=== PATIENT | female | born 1950 | race Caucasian/White ===

== ENCOUNTER 2021-04-26 15:39 | Inpatient (IN) ==
[2021-04-26] MEDS ORDERED: NS 0.9% 1000 ml BAG 1,000 ML IV ONE ×2 (19:50→23:45)
[2021-04-26] MEDS ORDERED: Ondansetron 4 mg VIAL 2 MG/ML 2 ml VIAL IV ONE ×2 (20:04→23:45)
[2021-04-26 20:17] LABS: ABS Basophils 0.1 10^3/ul (0-0.2); ABS Lymphocytes 2.8 10^3/ul (1.0-4.8); ABS Monocytes 1.4 10^3/ul (0-0.8); ABS Neutrophils 10.3 10^3/ul (1.5-7.7); Eosinophil % 0.2 %; Hematocrit 34 % (35-47); Hemoglobin 11.2 g/dL (12.0-16.0); Lymphocyte % 18.9 %; Mean Corpuscular HGB Conc 33 g/dL (31-36); Mean Corpuscular Hemoglobin 27 pg (27-31); Mean Corpuscular Volume 83 fL (80-97); Mean Platelet Volume 8.9 fL (7.4-10.4); Nucleated Red Blood Cells % 0.2; Platelet Count 360 10^3/uL (150-450); Red Blood Count 4.12 10^6 /uL (3.70-4.87); Red Cell Distribution Width 15 % (10-15); White Blood Count 14.6 10^3/uL (3.5-10.8)
[2021-04-26 20:54] LABS: Albumin 3.9 g/dL (3.2-5.2); Albumin/Globulin Ratio 1.2 (1-3); C Reactive Protein 314.42 mg/L (<8.01); Calcium 8.5 mg/dL (8.6-10.3); Globulin 3.2 g/dL (2-4); Potassium 4.2 mmol/L (3.5-5.0); Total Bilirubin 0.6 mg/dL (0.2-1.0); Total Protein 7.1 g/dL (6.4-8.9); eGFR CKD-EPI 69.7 (>60)
[2021-04-26 21:52] LABS: Urine Appearance Cloudy; Urine Bilirubin Negative (Negative); Urine Blood 1+ (Negative); Urine Color Yellow; Urine Glucose Negative (Negative); Urine Ketones 2+ (Negative); Urine Nitrite Negative (Negative); Urine Protein 1+(30 mg/dL) (Negative); Urine Urobilinogen Negative (Negative)
[2021-04-26 21:54] LABS: Urine Bacteria Absent (Absent); Urine Red Blood Cell 3+(>10/hpf) (Absent); Urine Squamous Epithelial Cell Present (Absent); Urine White Blood Cell 1+(6-10/hpf) (Absent)
[2021-04-26 22:30] LABS: Rapid COVID-19 Molecular Undetected (Undetected)
[2021-04-27] MEDS ORDERED: Iodixanol (CONTRAST) 320 MG/ML 100 ML SDV IV ONE (00:13)
[2021-04-27] MEDS ORDERED: Piperacillin/Tazobac ADVAN 3.375 GM in NS 0.9% 100 ml BAG 100 ML IV ONE (03:08)
[2021-04-27] MEDS ORDERED: Zosyn per Pharmacy NOTE FOLLOW UP SCH (04:00)
[2021-04-27] MEDS ORDERED: Albuterol HFA INHALER 8 gm MDI INH PRN (05:34)
[2021-04-27] MEDS: Ondansetron 4 mg VIAL 2 MG/ML 2 ml VIAL IV PRN ×2 (06:12→23:20)
[2021-04-27] MEDS: Lactated Ringers 1000 ml BAG 1,000 ML IV SCH ×2 (06:21→15:18)
[2021-04-27] MEDS: Mometasone 220 MCG MDI INH SCH ×2 (07:20→21:19)
[2021-04-27] MEDS: Pantoprazole VIAL 40 MG VIAL IV SCH (08:46)
[2021-04-27] MEDS: ZOSYN 3.375 GM Q8H per EXTENDED INFUSION IV SCH ×3 (08:46→23:47)
[2021-04-27 09:12] LABS: ABS Eosinophils 0.1 10^3/ul (0-0.6); ABS Lymphocytes 1.4 10^3/ul (1.0-4.8); ABS Neutrophils 8.1 10^3/ul (1.5-7.7); Eosinophil % 0.5 %; Hematocrit 31 % (35-47); Hemoglobin 10.4 g/dL (12.0-16.0); Lymphocyte % 13.7 %; Mean Corpuscular HGB Conc 33 g/dL (31-36); Mean Corpuscular Hemoglobin 28 pg (27-31); Mean Corpuscular Volume 84 fL (80-97); Mean Platelet Volume 9.1 fL (7.4-10.4); Platelet Count 291 10^3/uL (150-450); Red Blood Count 3.71 10^6 /uL (3.70-4.87); Red Cell Distribution Width 15 % (10-15); White Blood Count 10.6 10^3/uL (3.5-10.8)
[2021-04-27 09:42] LABS: Albumin 3.3 g/dL (3.2-5.2); Albumin/Globulin Ratio 1.2 (1-3); C Reactive Protein 241.06 mg/L (<8.01); Calcium 7.3 mg/dL (8.6-10.3); Direct Bilirubin 0.1 mg/dL (0.03-0.18); Globulin 2.7 g/dL (2-4); Indirect Bilirubin 0.4 mg/dL (0.3-1.0); Potassium 3.9 mmol/L (3.5-5.0); Total Bilirubin 0.5 mg/dL (0.2-1.0); eGFR CKD-EPI 91.4 (>60)
[2021-04-27] MEDS ORDERED: fentaNYL 100 mcg/2 ml 50 MCG/ML VIAL ONE (12:00)
[2021-04-27] MEDS ORDERED: Midazolam 10 mg/10 ml VIAL 1 mg/ml 10 ml VIAL (10 mg) ONE (12:00)
[2021-04-27 14:55] LABS: Carcinoembryonic Antigen 0.9 ng/mL (0.1-5.0)
[2021-04-27] MEDS: Acetaminop/Codeine 300mg/30mg TAB PO PRN (16:47)
[2021-04-28] MEDS: Lactated Ringers 1000 ml BAG 1,000 ML IV SCH ×2 (03:24→22:54)
[2021-04-28] MEDS: Acetaminop/Codeine 300mg/30mg TAB PO PRN ×3 (03:26→19:46)
[2021-04-28 05:47] LABS: ABS Eosinophils 0.1 10^3/ul (0-0.6); ABS Lymphocytes 1.4 10^3/ul (1.0-4.8); ABS Neutrophils 7.2 10^3/ul (1.5-7.7); Eosinophil % 0.6 %; Hematocrit 28 % (35-47); Hemoglobin 9.2 g/dL (12.0-16.0); Lymphocyte % 14.8 %; Mean Corpuscular HGB Conc 33 g/dL (31-36); Mean Corpuscular Hemoglobin 28 pg (27-31); Mean Corpuscular Volume 84 fL (80-97); Mean Platelet Volume 8.4 fL (7.4-10.4); Platelet Count 276 10^3/uL (150-450); Red Blood Count 3.34 10^6 /uL (3.70-4.87); Red Cell Distribution Width 15 % (10-15); White Blood Count 9.8 10^3/uL (3.5-10.8)
[2021-04-28 06:06] LABS: Calcium 6.8 mg/dL (8.6-10.3); Potassium 3.9 mmol/L (3.5-5.0); eGFR CKD-EPI 89.9 (>60)
[2021-04-28] MEDS: Mometasone 220 MCG MDI INH SCH ×2 (08:06→19:36)
[2021-04-28] MEDS: Ondansetron 4 mg VIAL 2 MG/ML 2 ml VIAL IV PRN (08:41)
[2021-04-28] MEDS: ZOSYN 3.375 GM Q8H per EXTENDED INFUSION IV SCH ×3 (08:46→22:49)
[2021-04-28] MEDS: Pantoprazole VIAL 40 MG VIAL IV SCH (08:46)
[2021-04-29] MEDS: Acetaminop/Codeine 300mg/30mg TAB PO PRN ×2 (03:36→13:57)
[2021-04-29] MEDS: Pantoprazole VIAL 40 MG VIAL IV SCH (07:42)
[2021-04-29] MEDS: ZOSYN 3.375 GM Q8H per EXTENDED INFUSION IV SCH ×3 (07:42→22:09)
[2021-04-29] MEDS: Mometasone 220 MCG MDI INH SCH ×2 (07:44→20:11)
[2021-04-29 08:47] LABS: ABS Basophils 0.1 10^3/ul (0-0.2); ABS Eosinophils 0.1 10^3/ul (0-0.6); ABS Lymphocytes 1.7 10^3/ul (1.0-4.8); ABS Neutrophils 8.6 10^3/ul (1.5-7.7); Hematocrit 29 % (35-47); Hemoglobin 9.4 g/dL (12.0-16.0); Lymphocyte % 14.5 %; Mean Corpuscular HGB Conc 32 g/dL (31-36); Mean Corpuscular Hemoglobin 27 pg (27-31); Mean Corpuscular Volume 84 fL (80-97); Mean Platelet Volume 8.2 fL (7.4-10.4); Platelet Count 290 10^3/uL (150-450); Red Blood Count 3.47 10^6 /uL (3.70-4.87); Red Cell Distribution Width 15 % (10-15); White Blood Count 11.5 10^3/uL (3.5-10.8)
[2021-04-29] MEDS: Lactated Ringers 1000 ml BAG 1,000 ML IV SCH ×3 (09:09→22:09)
[2021-04-29 09:13] LABS: Potassium 3.6 mmol/L (3.5-5.0); eGFR CKD-EPI 93.6 (>60)
[2021-04-29] MEDS ORDERED: Gadoteridol (CONTRAST) 279.3 MG/ML 10 ML IV ONE (12:18)
[2021-04-29] MEDS ORDERED: Saline NASAL SPRAY 0.65% BTL BOTH NARES PRN (16:20)
[2021-04-29] MEDS: Enoxaparin 40 MG/0.4 ML SYR SUBCUT SCH (16:56)
[2021-04-29] MEDS: Ondansetron 4 mg VIAL 2 MG/ML 2 ml VIAL IV PRN (17:59)
[2021-04-29] MEDS: Acetaminop/Codeine 300mg/30mg TAB PO SCH (21:04)
[2021-04-30] MEDS: Acetaminop/Codeine 300mg/30mg TAB PO SCH ×3 (05:12→21:17)
[2021-04-30 06:02] LABS: ABS Basophils 0.1 10^3/ul (0-0.2); ABS Eosinophils 0.1 10^3/ul (0-0.6); ABS Lymphocytes 1.9 10^3/ul (1.0-4.8); ABS Monocytes 1.1 10^3/ul (0-0.8); ABS Neutrophils 9.5 10^3/ul (1.5-7.7); Hematocrit 30 % (35-47); Hemoglobin 9.9 g/dL (12.0-16.0); Lymphocyte % 15.3 %; Mean Corpuscular HGB Conc 33 g/dL (31-36); Mean Corpuscular Hemoglobin 28 pg (27-31); Mean Corpuscular Volume 84 fL (80-97); Mean Platelet Volume 8.4 fL (7.4-10.4); Platelet Count 295 10^3/uL (150-450); Red Blood Count 3.57 10^6 /uL (3.70-4.87); Red Cell Distribution Width 15 % (10-15); White Blood Count 12.7 10^3/uL (3.5-10.8)
[2021-04-30 06:23] LABS: C Reactive Protein 307.24 mg/L (<8.01); Potassium 3.7 mmol/L (3.5-5.0); eGFR CKD-EPI 95.4 (>60)
[2021-04-30] MEDS: ZOSYN 3.375 GM Q8H per EXTENDED INFUSION IV SCH ×3 (07:38→22:06)
[2021-04-30] MEDS: Mometasone 220 MCG MDI INH SCH ×2 (07:49→20:37)
[2021-04-30] MEDS: Lactated Ringers 1000 ml BAG 1,000 ML IV SCH ×2 (09:51→19:26)
[2021-04-30] MEDS: Enoxaparin 40 MG/0.4 ML SYR SUBCUT SCH (17:51)
[2021-05-01] MEDS: Acetaminop/Codeine 300mg/30mg TAB PO SCH ×3 (05:49→23:30)
[2021-05-01] MEDS: Lactated Ringers 1000 ml BAG 1,000 ML IV SCH ×2 (05:50→23:29)
[2021-05-01] MEDS: Ondansetron 4 mg VIAL 2 MG/ML 2 ml VIAL IV PRN ×2 (05:53→23:06)
[2021-05-01 06:03] LABS: ABS Basophils 0.1 10^3/ul (0-0.2); ABS Eosinophils 0.2 10^3/ul (0-0.6); ABS Lymphocytes 1.4 10^3/ul (1.0-4.8); ABS Monocytes 0.9 10^3/ul (0-0.8); Eosinophil % 2.3 %; Hematocrit 25 % (35-47); Hemoglobin 8.4 g/dL (12.0-16.0); Lymphocyte % 14.4 %; Mean Corpuscular HGB Conc 33 g/dL (31-36); Mean Corpuscular Hemoglobin 28 pg (27-31); Mean Corpuscular Volume 84 fL (80-97); Mean Platelet Volume 8.3 fL (7.4-10.4); Nucleated Red Blood Cells % 0.1; Platelet Count 265 10^3/uL (150-450); Red Blood Count 3.03 10^6 /uL (3.70-4.87); Red Cell Distribution Width 15 % (10-15); White Blood Count 9.6 10^3/uL (3.5-10.8)
[2021-05-01 06:34] LABS: Blood Urea Nitrogen 3 mg/dL (6-24); CO2 Carbon Dioxide 32 mmol/L (22-32); Calcium 6.5 mg/dL (8.6-10.3); Chloride 100 mmol/L (101-111); Glucose 95 mg/dL (70-100); Sodium 139 mmol/L (135-145); eGFR CKD-EPI 99.4 (>60)
[2021-05-01 06:37] LABS: Anion Gap 7 mmol/L (2-11)
[2021-05-01] MEDS: ZOSYN 3.375 GM Q8H per EXTENDED INFUSION IV SCH ×3 (07:04→23:03)
[2021-05-01] MEDS: Mometasone 220 MCG MDI INH SCH ×2 (07:50→19:02)
[2021-05-01] MEDS: Enoxaparin 40 MG/0.4 ML SYR SUBCUT SCH (17:20)
[2021-05-02] MEDS: Acetaminop/Codeine 300mg/30mg TAB PO SCH ×3 (05:39→21:06)
[2021-05-02 06:08] LABS: ABS Basophils 0.1 10^3/ul (0-0.2); ABS Eosinophils 0.2 10^3/ul (0-0.6); ABS Lymphocytes 1.4 10^3/ul (1.0-4.8); ABS Monocytes 0.8 10^3/ul (0-0.8); ABS Neutrophils 5.3 10^3/ul (1.5-7.7); Hematocrit 25 % (35-47); Hemoglobin 8.2 g/dL (12.0-16.0); Lymphocyte % 17.6 %; Mean Corpuscular HGB Conc 33 g/dL (31-36); Mean Corpuscular Hemoglobin 27 pg (27-31); Mean Corpuscular Volume 83 fL (80-97); Mean Platelet Volume 8.1 fL (7.4-10.4); Nucleated Red Blood Cells % 0.2; Platelet Count 263 10^3/uL (150-450); Red Blood Count 3.03 10^6 /uL (3.70-4.87); Red Cell Distribution Width 15 % (10-15); White Blood Count 7.7 10^3/uL (3.5-10.8)
[2021-05-02] MEDS: ZOSYN 3.375 GM Q8H per EXTENDED INFUSION IV SCH (08:24)
[2021-05-02] MEDS: Mometasone 220 MCG MDI INH SCH ×2 (08:28→19:35)
[2021-05-02] MEDS: cefTRIAXone 1 gm/50 mL D5W 1 GM/50 ML BAG IV SCH (12:06)
[2021-05-02] MEDS: Enoxaparin 40 MG/0.4 ML SYR SUBCUT SCH (15:45)
[2021-05-03] MEDS: Acetaminop/Codeine 300mg/30mg TAB PO SCH ×2 (05:25→13:34)
[2021-05-03] MEDS: Mometasone 220 MCG MDI INH SCH ×2 (07:26→19:55)
[2021-05-03] MEDS: cefTRIAXone 1 gm/50 mL D5W 1 GM/50 ML BAG IV SCH (11:49)
[2021-05-03 15:36] VITALS: BP 133/68
[2021-05-03] MEDS: Enoxaparin 40 MG/0.4 ML SYR SUBCUT SCH (16:23)
== END 2021-05-03 18:45 | disposition home or self-care (01) | DRG 371 ==
LOC: ED 15:39 → SUATTDRO 04-27 03:02 → EDHOLD 04-27 03:02 → MED 04-27 05:37
PROVIDERS: ADMIT Internal Medicine; ATTEND Hospitalist

== ENCOUNTER 2021-06-12 16:49 | Inpatient (IN) ==
[2021-06-12] MEDS ORDERED: Albuterol HFA INHALER 8 gm MDI INH PRN (17:34)
[2021-06-12] MEDS ORDERED: Acetaminop/Codeine 300mg/30mg TAB PO PRN (17:34)
[2021-06-12] MEDS ORDERED: Morphine 4 MG/ML VIAL (1 ml) IV PRN (18:17)
[2021-06-12 18:23] LABS: Hematocrit 28 % (35-47); Mean Corpuscular HGB Conc 32 g/dL (31-36); Mean Corpuscular Hemoglobin 25 pg (27-31); Mean Corpuscular Volume 80 fL (80-97); Red Blood Count 3.54 10^6 /uL (3.70-4.87); Red Cell Distribution Width 17 % (10-15); White Blood Count 14.5 10^3/uL (3.5-10.8)
[2021-06-12 18:25] LABS: Albumin 3.2 g/dL (3.2-5.2); C Reactive Protein 307.99 mg/L (<8.01); Calcium 7.5 mg/dL (8.6-10.3); Globulin 3.2 g/dL (2-4); Magnesium 1.7 mg/dL (1.9-2.7); Total Bilirubin 0.8 mg/dL (0.2-1.0); Total Protein 6.4 g/dL (6.4-8.9); eGFR CKD-EPI 89.3 (>60)
[2021-06-12] MEDS: NS 0.9% 1000 ml BAG 1,000 ML IV SCH (18:41)
[2021-06-12] MEDS ORDERED: CMCS: Meloxicam 7.5 mg TAB (NF) PO PRN (18:51)
[2021-06-12] MEDS ORDERED: Dextrose 50% Syringe 50 ml 25 GM/50 ML SYRINGE IV PUSH PRN (19:04)
[2021-06-12 19:06] LABS: ABS Basophils 0.1 10^3/ul (0-0.2); ABS Eosinophils 0.1 10^3/ul (0-0.6); ABS Lymphocytes 2.4 10^3/ul (1.0-4.8); ABS Monocytes 1.5 10^3/ul (0-0.8); ABS Neutrophils 10.5 10^3/ul (1.5-7.7); Eosinophil % 0.5 %; Lymphocyte % 16.6 %; Mean Platelet Volume 9.2 fL (7.4-10.4); Platelet Count 315 10^3/uL (150-450)
[2021-06-12 19:27] LABS: Urine Appearance Clear; Urine Bilirubin Negative (Negative); Urine Blood Negative (Negative); Urine Color Yellow; Urine Glucose Negative (Negative); Urine Ketones Negative (Negative); Urine Nitrite Negative (Negative); Urine Protein Negative (Negative); Urine Specific Gravity 1.044 (1.002-1.030); Urine Urobilinogen Negative (Negative)
[2021-06-12] MEDS: Mometasone 220 MCG MDI INH SCH (19:55)
[2021-06-12 20:07] LABS: Urine Bacteria Absent (Absent); Urine Red Blood Cell Absent (Absent); Urine Squamous Epithelial Cell Present (Absent); Urine White Blood Cell Trace(0-5/hpf) (Absent)
[2021-06-12] MEDS: Calcium/Vitamin D TAB 250/125 TAB PO SCH (20:36)
[2021-06-12] MEDS: Cefepime 2 GM in Dextrose 2 GM/50 ML BAG IV SCH (20:36)
[2021-06-12] MEDS ORDERED: NASONEX 50 MCG BOTH NARES SCH (21:00)
[2021-06-12] MEDS ORDERED: Heparin 5000 UNITS/ML 1 mL VIAL SUBCUT SCH (22:00)
[2021-06-13] MEDS: Morphine 2 MG/ML SYRINGE IV PRN ×5 (00:38→21:43)
[2021-06-13] MEDS: Ondansetron 4 mg VIAL 2 MG/ML 2 ml VIAL IV PRN ×4 (00:45→13:42)
[2021-06-13 07:06] LABS: ABS Basophils 0.1 10^3/ul (0-0.2); ABS Lymphocytes 1.5 10^3/ul (1.0-4.8); ABS Monocytes 1.4 10^3/ul (0-0.8); ABS Neutrophils 10.8 10^3/ul (1.5-7.7); Eosinophil % 0.3 %; Hematocrit 26 % (35-47); Hemoglobin 8.3 g/dL (12.0-16.0); Lymphocyte % 10.7 %; Mean Corpuscular HGB Conc 32 g/dL (31-36); Mean Corpuscular Hemoglobin 26 pg (27-31); Mean Corpuscular Volume 79 fL (80-97); Platelet Count 277 10^3/uL (150-450); Red Blood Count 3.24 10^6 /uL (3.70-4.87); Red Cell Distribution Width 17 % (10-15); White Blood Count 13.7 10^3/uL (3.5-10.8)
[2021-06-13 07:20] LABS: Anion Gap 9 mmol/L (2-11); Blood Urea Nitrogen 11 mg/dL (6-24); CO2 Carbon Dioxide 26 mmol/L (22-32); Chloride 102 mmol/L (101-111); Glucose 113 mg/dL (70-100); Magnesium 1.8 mg/dL (1.9-2.7); Potassium 4.4 mmol/L (3.5-5.0); Sodium 137 mmol/L (135-145); eGFR CKD-EPI 95.5 (>60)
[2021-06-13] MEDS ORDERED: Magnesium Sulfate 2 gm BAG 2 GM/50 ML BAG IVPB ONE (07:38)
[2021-06-13] MEDS ORDERED: CALCIUM GLUCONATE 1GM/50ML NS 1 GM/50 ML BAG IV ONE (09:00)
[2021-06-13] MEDS: Cefepime 2 GM in Dextrose 2 GM/50 ML BAG IV SCH ×2 (09:46→21:54)
[2021-06-13] MEDS: Calcium/Vitamin D TAB 250/125 TAB PO SCH ×2 (09:58→21:48)
[2021-06-13] MEDS: Potassium Chlor 10 meq TAB PO SCH (09:59)
[2021-06-13] MEDS: Mometasone 220 MCG MDI INH SCH ×2 (10:05→21:46)
[2021-06-13] MEDS: Fluticasone NASAL SPRAY 50MCG 16 gm SPRAY BTL INTRANASAL SCH ×2 (10:43→21:50)
[2021-06-13] MEDS: Multivitamins/Minerals TAB PO SCH (10:43)
[2021-06-13 16:00] LABS: Total Iron Binding Capacity 210 mcg/dL (250-450); Transferrin 150 mg/dL (203-362)
[2021-06-13] MEDS: metroNIDAZOLE IV 500 MG/100ML 500 MG/100 ML BAG IVPB SCH ×2 (16:10→23:09)
[2021-06-13 16:40] LABS: Ferritin 138.8 ng/mL (11-307)
[2021-06-13 16:50] LABS: % Iron Saturation 10 % (15-55); Iron < 20 ug/dL (50-212); Unsaturated Iron Binding 190 ug/dL
[2021-06-13] MEDS ORDERED: Lidocaine 2% PF 5 ML VIAL ONE (16:59)
[2021-06-13] MEDS ORDERED: Propofol 10 MG/ML 20 ML BTL ONE (16:59)
[2021-06-13] MEDS ORDERED: fentaNYL 100 mcg/2 ml 50 MCG/ML VIAL ONE ×2 (17:03→18:39)
[2021-06-13] MEDS ORDERED: Midazolam 2 mg/2 ml VIAL 1 mg/ml 2 ml VIAL (2 mg) ONE (17:33)
[2021-06-13] MEDS ORDERED: Ondansetron 4 mg VIAL 2 MG/ML 2 ml VIAL ONE (17:34)
[2021-06-13] MEDS ORDERED: Sodium Chloride 0.9% 10 ML ONE (17:48)
[2021-06-13] MEDS ORDERED: Phenylephrine IV 10 MG/ML 1 ml VIAL ONE (17:48)
[2021-06-13] MEDS ORDERED: fentaNYL 100 mcg/2 ml 50 MCG/ML VIAL IV PRN (18:29)
[2021-06-13] MEDS ORDERED: Ondansetron 4 mg VIAL 2 MG/ML 2 ml VIAL IV PRN (18:29)
[2021-06-13] MEDS ORDERED: Naloxone 0.4 mg VIAL 0.4 mg/ml 1 ml VIAL IV PRN (18:29)
[2021-06-13] MEDS ORDERED: Acetaminophen IV 1 GM/100ML 100 ML IV PRN (18:29)
[2021-06-13] MEDS ORDERED: HYDROmorphone 1 MG/1 ML SYRINGE IV PRN (18:29)
[2021-06-13] MEDS ORDERED: DiMENhydriNATE IV 50 mg/ml 1 ml VIAL IV PUSH PRN (18:29)
[2021-06-13] MEDS ORDERED: Acetaminophen IV 1 GM/100ML 100 ML IV ONE (18:56)
[2021-06-13] MEDS ORDERED: DiMENhydriNATE IV 50 mg/ml 1 ml VIAL ONE (19:06)
[2021-06-13] MEDS: NS 0.9% 1000 ml BAG 1,000 ML IV SCH (21:38)
[2021-06-14] MEDS: metroNIDAZOLE IV 500 MG/100ML 500 MG/100 ML BAG IVPB SCH ×2 (05:22→14:51)
[2021-06-14] MEDS: Morphine 2 MG/ML SYRINGE IV PRN ×3 (05:28→17:08)
[2021-06-14 06:40] LABS: ABS Eosinophils 0.1 10^3/ul (0-0.6); ABS Lymphocytes 1.5 10^3/ul (1.0-4.8); ABS Monocytes 1.2 10^3/ul (0-0.8); ABS Neutrophils 8.5 10^3/ul (1.5-7.7); Eosinophil % 0.9 %; Hematocrit 26 % (35-47); Hemoglobin 8.3 g/dL (12.0-16.0); Lymphocyte % 12.9 %; Mean Corpuscular HGB Conc 32 g/dL (31-36); Mean Corpuscular Hemoglobin 26 pg (27-31); Mean Corpuscular Volume 81 fL (80-97); Mean Platelet Volume 8.9 fL (7.4-10.4); Platelet Count 252 10^3/uL (150-450); Red Blood Count 3.17 10^6 /uL (3.70-4.87); Red Cell Distribution Width 17 % (10-15); White Blood Count 11.3 10^3/uL (3.5-10.8)
[2021-06-14 06:54] LABS: Calcium 7.3 mg/dL (8.6-10.3); Potassium 4.2 mmol/L (3.5-5.0); eGFR CKD-EPI 94.4 (>60)
[2021-06-14] MEDS: Mometasone 220 MCG MDI INH SCH ×2 (08:09→19:56)
[2021-06-14] MEDS: Cefepime 2 GM in Dextrose 2 GM/50 ML BAG IV SCH (08:16)
[2021-06-14] MEDS: Multivitamins/Minerals TAB PO SCH (09:18)
[2021-06-14] MEDS: Calcium/Vitamin D TAB 250/125 TAB PO SCH (09:18)
[2021-06-14] MEDS: Potassium Chlor 10 meq TAB PO SCH (09:18)
[2021-06-14] MEDS: Fluticasone NASAL SPRAY 50MCG 16 gm SPRAY BTL INTRANASAL SCH (09:21)
[2021-06-14] MEDS ORDERED: Enoxaparin 40 MG/0.4 ML SYR SUBCUT SCH (10:00)
[2021-06-14 12:22] LABS: Rapid COVID-19 Molecular Undetected (Undetected)
[2021-06-14] MEDS: Ondansetron 4 mg VIAL 2 MG/ML 2 ml VIAL IV PRN (17:11)
[2021-06-14 19:57] VITALS: BP 108/66
== END 2021-06-14 20:30 | disposition short-term general hospital (02) | DRG 987 ==
LOC: SUATTDRO 17:17 → SSU 17:17
PROVIDERS: ADMIT Internal Medicine; ATTEND Internal Medicine

== ENCOUNTER 2021-08-30 11:23 | Inpatient (IN) ==
[2021-08-30 12:14] LABS: ABS Basophils 0.1 10^3/ul (0-0.2); ABS Eosinophils 0.1 10^3/ul (0-0.6); ABS Lymphocytes 1.4 10^3/ul (1.0-4.8); ABS Monocytes 0.5 10^3/ul (0-0.8); ABS Neutrophils 5.6 10^3/ul (1.5-7.7); Eosinophil % 0.7 %; Hematocrit 29 % (35-47); Lymphocyte % 18.6 %; Mean Corpuscular HGB Conc 31 g/dL (31-36); Mean Corpuscular Hemoglobin 24 pg (27-31); Mean Corpuscular Volume 79 fL (80-97); Mean Platelet Volume 9.8 fL (7.4-10.4); Nucleated Red Blood Cells % 0.1; Platelet Count 215 10^3/uL (150-450); Red Blood Count 3.68 10^6 /uL (3.70-4.87); Red Cell Distribution Width 21 % (10-15); White Blood Count 7.7 10^3/uL (3.5-10.8)
[2021-08-30 12:54] LABS: Albumin 3.8 g/dL (3.2-5.2); Albumin/Globulin Ratio 1.6 (1-3); Calcium 8.5 mg/dL (8.6-10.3); Globulin 2.4 g/dL (2-4); Potassium 4.5 mmol/L (3.5-5.0); Total Bilirubin 0.7 mg/dL (0.2-1.0); Total Protein 6.2 g/dL (6.4-8.9); eGFR CKD-EPI 67.4 (>60)
[2021-08-30] MEDS ORDERED: Furosemide 40 mg/4 ml IV VIAL IV ONE (13:22)
[2021-08-30 13:39] LABS: Magnesium 1.9 mg/dL (1.9-2.7)
[2021-08-30 14:05] LABS: High Sensitivity Troponin 1 Hr 17 pg/mL (<15)
[2021-08-30] MEDS ORDERED: Albuterol HFA INHALER 8 gm MDI INH PRN (15:41)
[2021-08-30] MEDS ORDERED: Mometasone NASAL (NF) SPRAY BOTH NARES PRN (15:41)
[2021-08-30 16:55] LABS: C Reactive Protein 8.86 mg/L (<8.01)
[2021-08-30] MEDS ORDERED: Dextrose 50% Syringe 50 ml 25 GM/50 ML SYRINGE IV PUSH PRN (17:44)
[2021-08-30] MEDS: Enoxaparin 30 MG/0.3 ML SYR SUBCUT SCH (17:55)
[2021-08-30] MEDS: Potassium Chlor 20 meq TAB.ER PO SCH (20:19)
[2021-08-30] MEDS ORDERED: Furosemide 20 mg/2 ml IV VIAL IV SLOW PU ONE (21:00)
[2021-08-30] MEDS: Polyethylene Glycol 3350 17 GM PACKET PO SCH (23:37)
[2021-08-31] MEDS ORDERED: Furosemide 40 mg/4 ml IV VIAL IV SLOW PU ONE (05:31)
[2021-08-31 06:05] LABS: ABS Basophils 0.1 10^3/ul (0-0.2); ABS Eosinophils 0.2 10^3/ul (0-0.6); ABS Lymphocytes 2.8 10^3/ul (1.0-4.8); ABS Monocytes 0.6 10^3/ul (0-0.8); ABS Neutrophils 5.6 10^3/ul (1.5-7.7); Hematocrit 31 % (35-47); Hemoglobin 9.8 g/dL (12.0-16.0); Lymphocyte % 30.3 %; Mean Corpuscular HGB Conc 31 g/dL (31-36); Mean Corpuscular Hemoglobin 24 pg (27-31); Mean Corpuscular Volume 77 fL (80-97); Mean Platelet Volume 9.3 fL (7.4-10.4); Nucleated Red Blood Cells % 0.1; Platelet Count 245 10^3/uL (150-450); Red Blood Count 4.07 10^6 /uL (3.70-4.87); Red Cell Distribution Width 20 % (10-15); White Blood Count 9.3 10^3/uL (3.5-10.8)
[2021-08-31 06:43] LABS: Calcium 8.4 mg/dL (8.6-10.3); HDL Cholesterol 37.3 mg/dL; Magnesium 1.8 mg/dL (1.9-2.7); eGFR CKD-EPI 52.6 (>60)
[2021-08-31 06:58] LABS: TSH Ultra Thyroid Stim Horm 0.62 mcIU/mL (0.34-5.60)
[2021-08-31 07:04] LABS: Ferritin 28.3 ng/mL (11-307)
[2021-08-31] MEDS: Mometasone 220 MCG MDI INH SCH ×2 (07:56→20:02)
[2021-08-31] MEDS ORDERED: CALCIUM CARBONATE VITAMIN D3 PO SCH (09:00)
[2021-08-31] MEDS ORDERED: Furosemide 40 mg/4 ml IV VIAL IV SCH (09:00)
[2021-08-31] MEDS ORDERED: Iron Sucrose 20 MG/ML 5 ML VIAL IV PUSH SCH (09:00)
[2021-08-31] MEDS: Polyethylene Glycol 3350 17 GM PACKET PO SCH ×2 (09:14→20:14)
[2021-08-31] MEDS: Aspirin EC 81 mg TAB.EC (enteric coated) PO SCH (09:21)
[2021-08-31] MEDS: Potassium Chlor 20 meq TAB.ER PO SCH (09:22)
[2021-08-31] MEDS: Iron Sucrose 200 MG in NS 0.9% 100 ml IVPB SCH (09:24)
[2021-08-31] MEDS: Enoxaparin 30 MG/0.3 ML SYR SUBCUT SCH (17:42)
[2021-08-31] MEDS ORDERED: Nitroglycerin 0.4 mg/hr PATCH (10 mg) TRANSDERM SCH (20:00)
[2021-08-31] MEDS: Furosemide 40 mg/4 ml IV VIAL IV SCH (20:14)
[2021-09-01 07:29] LABS: ABS Basophils 0.1 10^3/ul (0-0.2); ABS Eosinophils 0.2 10^3/ul (0-0.6); ABS Lymphocytes 3.6 10^3/ul (1.0-4.8); ABS Monocytes 0.8 10^3/ul (0-0.8); ABS Neutrophils 5.4 10^3/ul (1.5-7.7); Eosinophil % 2.1 %; Hematocrit 32 % (35-47); Hemoglobin 10.4 g/dL (12.0-16.0); Lymphocyte % 35.1 %; Mean Corpuscular HGB Conc 32 g/dL (31-36); Mean Corpuscular Hemoglobin 25 pg (27-31); Mean Corpuscular Volume 76 fL (80-97); Mean Platelet Volume 9.8 fL (7.4-10.4); Nucleated Red Blood Cells % 0.1; Platelet Count 256 10^3/uL (150-450); Red Blood Count 4.23 10^6 /uL (3.70-4.87); Red Cell Distribution Width 20 % (10-15); White Blood Count 10.1 10^3/uL (3.5-10.8)
[2021-09-01] MEDS: Mometasone 220 MCG MDI INH SCH ×2 (07:30→20:42)
[2021-09-01 07:57] LABS: Calcium 8.2 mg/dL (8.6-10.3); Magnesium 2.1 mg/dL (1.9-2.7); Potassium 3.9 mmol/L (3.5-5.0); eGFR CKD-EPI 50.4 (>60)
[2021-09-01] MEDS: Calcium/Vitamin D TAB 250/125 TAB PO SCH (10:36)
[2021-09-01] MEDS: Potassium Chlor 20 meq TAB.ER PO SCH (10:37)
[2021-09-01] MEDS: Aspirin EC 81 mg TAB.EC (enteric coated) PO SCH (10:37)
[2021-09-01] MEDS: Polyethylene Glycol 3350 17 GM PACKET PO SCH ×2 (10:37→21:29)
[2021-09-01] MEDS: Iron Sucrose 200 MG in NS 0.9% 100 ml IVPB SCH (10:38)
[2021-09-01] MEDS: Furosemide 40 mg/4 ml IV VIAL IV SCH (10:38)
[2021-09-01] MEDS: Enoxaparin 30 MG/0.3 ML SYR SUBCUT SCH (21:16)
[2021-09-01] MEDS: Nitroglycerin 0.4 mg/hr PATCH (10 mg) TRANSDERM SCH (21:27)
[2021-09-02 05:40] LABS: ABS Basophils 0.1 10^3/ul (0-0.2); ABS Eosinophils 0.2 10^3/ul (0-0.6); ABS Lymphocytes 2.7 10^3/ul (1.0-4.8); ABS Monocytes 0.7 10^3/ul (0-0.8); ABS Neutrophils 4.4 10^3/ul (1.5-7.7); Eosinophil % 2.6 %; Hematocrit 31 % (35-47); Hemoglobin 9.8 g/dL (12.0-16.0); Mean Corpuscular HGB Conc 32 g/dL (31-36); Mean Corpuscular Hemoglobin 25 pg (27-31); Mean Corpuscular Volume 77 fL (80-97); Mean Platelet Volume 9.5 fL (7.4-10.4); Nucleated Red Blood Cells % 0.1; Platelet Count 226 10^3/uL (150-450); Red Blood Count 3.99 10^6 /uL (3.70-4.87); Red Cell Distribution Width 20 % (10-15)
[2021-09-02 05:59] LABS: Magnesium 2.4 mg/dL (1.9-2.7); Potassium 3.8 mmol/L (3.5-5.0); eGFR CKD-EPI 46.1 (>60)
[2021-09-02] MEDS: Mometasone 220 MCG MDI INH SCH ×2 (07:23→20:00)
[2021-09-02] MEDS: Potassium Chlor 20 meq TAB.ER PO SCH (08:25)
[2021-09-02] MEDS: Aspirin EC 81 mg TAB.EC (enteric coated) PO SCH (08:26)
[2021-09-02] MEDS: Calcium/Vitamin D TAB 250/125 TAB PO SCH (08:27)
[2021-09-02] MEDS: Polyethylene Glycol 3350 17 GM PACKET PO SCH ×2 (08:31→20:58)
[2021-09-02] MEDS: Iron Sucrose 200 MG in NS 0.9% 100 ml IVPB SCH (08:56)
[2021-09-02] MEDS ORDERED: NS 0.9% 500 ml BAG 500 ML IV ONE (09:50)
[2021-09-02] MEDS ORDERED: Silver Sulfadiazine 1% 20 gm TUBE TOPICAL ONE (14:12)
[2021-09-02] MEDS ORDERED: PEG 3000 GI LAVAGE 1 GALLON PO ONE (16:00)
[2021-09-02] MEDS: Enoxaparin 30 MG/0.3 ML SYR SUBCUT SCH (16:42)
[2021-09-02] MEDS: Nitroglycerin 0.4 mg/hr PATCH (10 mg) TRANSDERM SCH (21:02)
[2021-09-03 05:43] LABS: ABS Basophils 0.1 10^3/ul (0-0.2); ABS Eosinophils 0.1 10^3/ul (0-0.6); ABS Lymphocytes 3.8 10^3/ul (1.0-4.8); ABS Monocytes 0.8 10^3/ul (0-0.8); ABS Neutrophils 5.4 10^3/ul (1.5-7.7); Eosinophil % 1.2 %; Hematocrit 31 % (35-47); Hemoglobin 9.7 g/dL (12.0-16.0); Lymphocyte % 37.2 %; Mean Corpuscular HGB Conc 31 g/dL (31-36); Mean Corpuscular Hemoglobin 24 pg (27-31); Mean Corpuscular Volume 78 fL (80-97); Mean Platelet Volume 9.5 fL (7.4-10.4); Nucleated Red Blood Cells % 0.1; Platelet Count 251 10^3/uL (150-450); Red Blood Count 4.03 10^6 /uL (3.70-4.87); Red Cell Distribution Width 21 % (10-15); White Blood Count 10.3 10^3/uL (3.5-10.8)
[2021-09-03] MEDS ORDERED: Levothyroxine 100 MCG/5 ML VIAL IV ONE (06:00)
[2021-09-03 06:06] LABS: Calcium 7.9 mg/dL (8.6-10.3); Magnesium 2.3 mg/dL (1.9-2.7); Potassium 3.8 mmol/L (3.5-5.0); eGFR CKD-EPI 56.8 (>60)
[2021-09-03] MEDS: Mometasone 220 MCG MDI INH SCH ×3 (08:21→19:57)
[2021-09-03] MEDS: Polyethylene Glycol 3350 17 GM PACKET PO SCH ×2 (09:57→20:56)
[2021-09-03] MEDS: Aspirin EC 81 mg TAB.EC (enteric coated) PO SCH (10:07)
[2021-09-03] MEDS: Calcium/Vitamin D TAB 250/125 TAB PO SCH (10:07)
[2021-09-03] MEDS: Potassium Chlor 20 meq TAB.ER PO SCH (10:07)
[2021-09-03] MEDS: Iron Sucrose 200 MG in NS 0.9% 100 ml IVPB SCH ×2 (10:09→15:41)
[2021-09-03] MEDS ORDERED: Lidocaine 2% PF 5 ML VIAL ONE (13:18)
[2021-09-03] MEDS ORDERED: Propofol 10 MG/ML 20 ML BTL ONE (13:18)
[2021-09-03] MEDS ORDERED: Midazolam 2 mg/2 ml VIAL 1 mg/ml 2 ml VIAL (2 mg) ONE (13:18)
[2021-09-03] MEDS ORDERED: fentaNYL 100 mcg/2 ml 50 MCG/ML VIAL ONE (13:18)
[2021-09-03 16:44] LABS: Urine Appearance Clear; Urine Bilirubin Negative (Negative); Urine Blood Trace (Intact) (Negative); Urine Color Straw; Urine Glucose Negative (Negative); Urine Ketones Negative (Negative); Urine Nitrite Negative (Negative); Urine Protein Negative (Negative); Urine Specific Gravity 1.015 (1.005-1.030); Urine Urobilinogen 0.2 (Negative) (Negative)
[2021-09-03 16:50] LABS: Urine Bacteria Absent (Absent); Urine Red Blood Cell Trace(0-2/hpf) (Absent); Urine Squamous Epithelial Cell Present (Absent); Urine White Blood Cell 3+(>20/hpf) (Absent)
[2021-09-03] MEDS ORDERED: KCL 20 MEQ/100 ML IVPREMIX 20 MEQ/100 ML BAG IV ONE (17:47)
[2021-09-03] MEDS: Enoxaparin 30 MG/0.3 ML SYR SUBCUT SCH (18:47)
[2021-09-03] MEDS: Nitroglycerin 0.4 mg/hr PATCH (10 mg) TRANSDERM SCH (20:55)
[2021-09-04] MEDS ORDERED: Levothyroxine 100 MCG/5 ML VIAL IV ONE (06:00)
[2021-09-04 06:07] LABS: ABS Basophils 0.1 10^3/ul (0-0.2); ABS Eosinophils 0.1 10^3/ul (0-0.6); ABS Lymphocytes 3.3 10^3/ul (1.0-4.8); ABS Monocytes 0.6 10^3/ul (0-0.8); ABS Neutrophils 4.4 10^3/ul (1.5-7.7); Eosinophil % 1.4 %; Hematocrit 31 % (35-47); Hemoglobin 9.9 g/dL (12.0-16.0); Lymphocyte % 38.8 %; Mean Corpuscular HGB Conc 32 g/dL (31-36); Mean Corpuscular Hemoglobin 25 pg (27-31); Mean Corpuscular Volume 78 fL (80-97); Platelet Count 222 10^3/uL (150-450); Red Blood Count 3.98 10^6 /uL (3.70-4.87); Red Cell Distribution Width 20 % (10-15); White Blood Count 8.5 10^3/uL (3.5-10.8)
[2021-09-04 06:39] LABS: Calcium 7.7 mg/dL (8.6-10.3); Magnesium 2.1 mg/dL (1.9-2.7); Potassium 3.4 mmol/L (3.5-5.0); eGFR CKD-EPI 56.8 (>60)
[2021-09-04] MEDS: Mometasone 220 MCG MDI INH SCH ×2 (07:05→19:54)
[2021-09-04] MEDS: Calcium/Vitamin D TAB 250/125 TAB PO SCH (07:36)
[2021-09-04] MEDS: Aspirin EC 81 mg TAB.EC (enteric coated) PO SCH (07:37)
[2021-09-04] MEDS ORDERED: Lidocaine 1% MPF 5 ML VIAL ONE ×2 (08:11→08:25)
[2021-09-04] MEDS ORDERED: Iohexol 350 (CONTRAST) 100 ML PAK IV ONE ×2 (08:11→08:12)
[2021-09-04] MEDS ORDERED: Heparin 2 UNITS/ML 1000 mls 2,000 ML IV ONE (08:11)
[2021-09-04] MEDS ORDERED: niCARdipine 0.1MG/ML IVPREMIX 20 MG/200 ML BAG IV ONE (08:28)
[2021-09-04] MEDS ORDERED: nitroGLYCERIN DRIP 25,000 MCG/250 ML BTL ONE (08:28)
[2021-09-04] MEDS ORDERED: fentaNYL 100 mcg/2 ml 50 MCG/ML VIAL ONE (08:28)
[2021-09-04] MEDS ORDERED: Midazolam 5 mg/5 ml VIAL 1 mg/ml 5 ml VIAL (5 mg) ONE (08:28)
[2021-09-04] MEDS ORDERED: VERAPAMIL 2.5 MG/ML 2 ML VIAL ** 5 mg/2 ml ONE (08:28)
[2021-09-04] MEDS ORDERED: Heparin 1,000 UNIT/ML 10 ml (10,000 UNITS) CATHLAB/DIALYSIS ONE (08:30)
[2021-09-04 09:12] LABS: POC SO2 59 %
[2021-09-04 09:15] LABS: POC SO2 95 %
[2021-09-04 09:15] LABS: POC SO2 58 %
[2021-09-04] MEDS: Polyethylene Glycol 3350 17 GM PACKET PO SCH ×2 (13:02→21:47)
[2021-09-04] MEDS: Potassium Chlor 20 meq TAB.ER PO SCH (13:02)
[2021-09-04] MEDS: Iron Sucrose 200 MG in NS 0.9% 100 ml IVPB SCH (13:03)
[2021-09-04] MEDS ORDERED: Potassium Chloride LIQUID 20 MEQ/15 ML LIQUID PO ONE (15:35)
[2021-09-04 16:30] LABS: Magnesium 2.1 mg/dL (1.9-2.7); eGFR CKD-EPI 55.5 (>60)
[2021-09-04] MEDS: Enoxaparin 30 MG/0.3 ML SYR SUBCUT SCH (17:02)
[2021-09-05 06:12] LABS: Calcium 7.9 mg/dL (8.6-10.3); Magnesium 2.2 mg/dL (1.9-2.7); Potassium 4.2 mmol/L (3.5-5.0); eGFR CKD-EPI 60.2 (>60)
[2021-09-05] MEDS: Mometasone 220 MCG MDI INH SCH (07:45)
[2021-09-05] MEDS ORDERED: Perflutren Lipid Microsphere 3 ML VIAL ONE (07:48)
[2021-09-05] MEDS: Potassium Chlor 20 meq TAB.ER PO SCH (08:29)
[2021-09-05] MEDS: Calcium/Vitamin D TAB 250/125 TAB PO SCH (08:29)
[2021-09-05] MEDS: Aspirin EC 81 mg TAB.EC (enteric coated) PO SCH (08:30)
[2021-09-05] MEDS: Polyethylene Glycol 3350 17 GM PACKET PO SCH (08:32)
[2021-09-05 11:49] VITALS: BP 105/64
[2021-09-05] MEDS ORDERED: Enoxaparin 40 MG/0.4 ML SYR SUBCUT SCH (14:00)
== END 2021-09-05 16:06 | disposition home or self-care (01) | DRG 286 ==
LOC: ED 11:23 → EDHOLD 15:17 → SUATTDRO 15:17 → MEDTELE 21:46
PROVIDERS: ADMIT Internal Medicine; ATTEND Internal Medicine